=== PATIENT | female | born 1985 | race Two or more races ===

== ENCOUNTER 2017-06-20 13:49 | Emergency (ER) | payer OTHER ==
[2017-06-20 14:18] LABS: CLARITY,URINE CLOUDY
[2017-06-20 14:40] LABS: COLOR,URINE ORANGE
[2017-06-20 14:43] LABS: BACTERIA,URINE MODERATE /HPF (0-FEW); SQUAMOUS EPITHELIAL CELL,UR MOD /LPF; WBC,URINE >40 /HPF (0-4)
== END 2017-06-20 15:21 | disposition home or self-care (01) ==
LOC: ER 13:49
DX: N39.0 Urinary tract infection, site not specified (principal)
CPT/HCPCS: 81001; 87086; 87186; 99284

== ENCOUNTER 2017-10-08 19:16 | Emergency (ER) | payer SELFPAY, OTHER ==
[2017-10-08 19:59] LABS: URINE HCG POC HCG NEGATIVE (Negative)
[2017-10-10 14:30] LABS: CHLAMYDIA PROBE Negative (Negative); GC PROBE Negative (Negative)
== END 2017-10-08 20:05 | disposition home or self-care (01) ==
LOC: ER 19:16
DX: N76.0 Acute vaginitis (principal); B96.89 Other specified bacterial agents as the cause of diseases classified elsewhere; A60.00 Herpesviral infection of urogenital system, unspecified
CPT/HCPCS: 81025; 87491; 87591; 99284; Q0111

== ENCOUNTER 2017-10-24 10:42 | Emergency (ER) | payer SELFPAY ==
[2017-10-24 11:22] LABS: URINE HCG POC HCG NEGATIVE (Negative)
[2017-10-24 11:30] LABS: BILIRUBIN,URINE NEGATIVE (NEG); CLARITY,URINE CLEAR; COLOR,URINE YELLOW; GLUCOSE,URINE NEGATIVE (NEG); NITRITE,URINE NEGATIVE (NEG); PH,URINE 6.5; PROTEIN,URINE NEGATIVE (NEG-TRACE); UROBILINOGEN,URINE 0.2 mg/dL (0.2 mg/dL)
[2017-10-24 11:51] LABS: BACTERIA,URINE FEW /HPF (0-FEW); RBC,URINE 0 /HPF (0-2); SQUAMOUS EPITHELIAL CELL,UR MOD /LPF
[2017-10-24] MEDS: cefTRIAXone IM 250 MG VIAL IM (12:00)
[2017-10-24] MEDS: AZITHROMYCIN 250 MG TABLET. PO (12:00)
[2017-10-24] MEDS: metroNIDAZOLE 500 MG TABLET PO (12:00)
[2017-10-25 13:22] LABS: CHLAMYDIA PROBE Negative (Negative); GC PROBE Negative (Negative)
== END 2017-10-24 12:43 | disposition home or self-care (01) ==
LOC: ER 10:42
DX: N39.0 Urinary tract infection, site not specified (principal)
CPT/HCPCS: 81001; 81025; 87086; 87491; 87591; 96372; 99284; J0696; Q0111; Q0144

== ENCOUNTER 2019-03-19 19:11 | Emergency (ER) | payer OTHER ==
[~2019-03-19] VITALS: Ht 170.2 cm; Wt 104.3 kg
[~2019-03-19 19:11] MED LIST: ACYC400T PO; METR-34 PO; SULF1TAB24 PO
[2019-03-19] MEDS ORDERED: FAMOTIDINE 20 MG/2 ML VIAL IVP ONE (19:45)
[2019-03-19] MEDS ORDERED: LIDO:MAALOX 1:1 20 ML SINGLE DOSE. SWSW ONE (19:45)
[2019-03-19] MEDS ORDERED: ONDANSETRON PF 4 MG/2 ML VIAL. IVP ONE (19:45)
[2019-03-19] MEDS ORDERED: ASPIRIN 325 MG TABLET PO ONE (19:45)
[2019-03-19 19:53] LABS: BASO % 0 % (0-3); EOS # 0.1 x10^3/uL (0.0-0.7); EOS % 2 % (0-3); HEMATOCRIT 32.4 % (36.0-47.0); HEMOGLOBIN 10.7 g/dL (12.0-15.5); LYMPH # 2.4 x10^3/uL (1.0-4.8); LYMPH % 33 % (24-48); MEAN CORPUSCULAR HEMOGLOBIN 27 pg (25-35); MEAN CORPUSCULAR HGB CONC 33 g/dL (31-37); MEAN CORPUSCULAR VOLUME 80 fL (79-100); MONO # 0.6 x10^3/uL (0.0-1.1); MONO % 8 % (0-9); NEUT % 56 % (31-73); PLATELET COUNT 329 x10^3/uL (140-400); RED BLOOD COUNT 4.03 x10^6/uL (3.50-5.40); RED CELL DISTRIBUTION WIDTH 16.6 % (11.5-14.5); WHITE BLOOD COUNT 7.2 x10^3/uL (4.0-11.0)
[2019-03-19 19:55] LABS: BILIRUBIN,URINE NEGATIVE (NEG); CLARITY,URINE CLOUDY; COLOR,URINE YELLOW; NITRITE,URINE NEGATIVE (NEG); PH,URINE 7.5; PROTEIN,URINE NEGATIVE (NEG-TRACE); UROBILINOGEN,URINE 0.2 mg/dL (0.2 mg/dL)
[2019-03-19 20:00] LABS: BARBITURATES NEG (NEG); BENZODIAZEPINES NEG (NEG); CANNABINOIDS NEG (NEG); COCAINE NEG (NEG); METHADONE NEG (NEG); OPIATES NEG (NEG); PHENCYCLIDINE NEG (NEG); RBC,URINE 0 /HPF (0-2); WBC,URINE 0 /HPF (0-4)
[2019-03-19 20:01] LABS: AMORPHOUS SEDIMENT,UR PRESENT /HPF; AMPHETAMINE/METHAMPHETAMINE NEG (NEG); BACTERIA,URINE 0 /HPF (0-FEW); SQUAMOUS EPITHELIAL CELL,UR MOD /LPF
[2019-03-19 20:05] LABS: CALCIUM 8.7 mg/dL (8.5-10.1); CREATININE 0.6 mg/dL (0.6-1.0); GFR 115.1; POTASSIUM 3.6 mmol/L (3.5-5.1)
[2019-03-19 20:10] LABS: ALBUMIN 3.4 g/dL (3.4-5.0); ALBUMIN/GLOBULIN RATIO 0.9 (1.0-1.7); TOTAL BILIRUBIN 0.1 mg/dL (0.2-1.0); TOTAL PROTEIN 7.3 g/dL (6.4-8.2)
[2019-03-19 20:21] LABS: CREATINE KINASE 75 U/L (26-192)
[2019-03-19] MEDS: fentaNYL PF VIAL 100 MCG/2 ML VIAL IV PRN ×2 (20:28→21:17)
--- NOTE | 2019-03-19 20:46 | RAD ---
Single view chest dated 03/19/2019: No comparison available. Clinical Indication: Chest pain. Findings: Single upright portable exam of the chest was performed. Heart size and mediastinal contours are within normal limits given technique. The lungs are clear without evidence of focal consolidation. Vascular interstitium is within normal limits. Minimal patchy increased density at the infrahilar region on the left Impression:: Minimal patchy increased density at the infrahilar region on the left, likely atelectasis. Electronically signed by: Ishmael Seo MD (03/19/2019 8:44 PM) [facility]
--- NOTE | 2019-03-19 21:04 | RAD ---
Right upper quadrant ultrasound dated 03/19/2019. No comparison available. Clinical data indication: Chest pain. FINDINGS: Liver appears somewhat enlarged and there is diffuse increased echogenicity throughout. No apparent mass. Biliary tree normal in caliber. The common bile duct measures 5 mm. There are echogenic shadowing foci within the gallbladder lumen. Prominent shadowing focus appears to be lodged at the gallbladder neck. There is also some echogenic material consistent with sludge. No wall thickening or pericholecystic fluid. Right kidney measures 10.9 cm in length. No hydronephrosis. Left kidney was not imaged. Pancreas aorta and IVC are not well evaluated due to overlying bowel gas. No significant ascites. IMPRESSION: 1. Cholelithiasis with no secondary signs of acute cholecystitis. 2. Hepatomegaly and mild hepatic steatosis. Electronically signed by: Ishmael Seo MD (03/19/2019 9:01 PM) [facility]
--- NOTE | 2019-03-19 21:52 | PHYS DOC ---
Past Medical History Past Medical History: Hypertension (JESSY GAUTHIER APRN) Past Surgical History: No Surgical History (JESSY GAUTHIER APRN) Alcohol Use: None Drug Use: None (JESSY GAUTHIER APRN) Adult General Chief Complaint Chief Complaint: CHEST PAIN HPI HPI Patient is a 33 year old female with history of hypertension who presents to the ED today complaining of a 9 out of 10 substernal chest pain radiating to the left arm that began around 4 PM today. Patient denies any exacerbating or relieving factors. She states she has history of acid reflex though she has not been taking her medications. She states she has a refill of omeprazole. Patient denies any nausea, vomiting. Denies any chance she is . (JESSY GAUTHIER APRN) Review of Systems Review of Systems Constitutional: Denies fever or chills [] Eyes: Denies change in visual acuity, redness, or eye pain [] HENT: Denies nasal congestion or sore throat [] Respiratory: Denies cough or shortness of breath [] Cardiovascular: Reports chest pain GI: Denies abdominal pain, nausea, vomiting, bloody stools or diarrhea [] : Denies dysuria or hematuria [] Musculoskeletal: Denies back pain or joint pain [] Integument: Denies rash or skin lesions [] Neurologic: Denies headache, focal weakness or sensory changes [] All other systems were reviewed and found to be within normal limits, except as documented in this note. (JESSY GAUTHIER APRN) Current Medications Current Medications Current Medications Medications (Trade) Dose Ordered Sig/Danica Start Time Stop Time Status Last Admin Dose Admin Aspirin (Scooter Aspirin) 325 mg 1X ONCE 03/19/19 19:45 03/19/19 20:19 DC 03/19/19 20:30 325 MG Famotidine (Pepcid Vial) 20 mg 1X ONCE 03/19/19 19:45 03/19/19 20:19 DC 03/19/19 20:29 20 MG Fentanyl Citrate (Fentanyl 2ml Vial) 50 mcg PRN Q15MIN PRN 03/19/19 19:45 03/19/19 22:29 DC 03/19/19 21:17 50 MCG Multi-Ingredient Mouthwash/Gargle (Gi Cocktail) 20 ml 1X ONCE 03/19/19 19:45 03/19/19 20:19 DC 03/19/19 20:31 20 ML Ondansetron HCl (Zofran) 4 mg 1X ONCE 03/19/19 19:45 03/19/19 20:19 DC 03/19/19 20:25 4 MG (ISHMAEL NORIEGA DO) Allergies Allergies Allergies Coded Allergies Type Severity Reaction Last Updated Verified No Known Drug Allergies 06/20/17 No (ISHMAEL NORIEGA DO) Physical Exam Physical Exam Constitutional: Well developed, well nourished, no acute distress, non-toxic appearance. [] HENT: Normocephalic, atraumatic, bilateral external ears normal, oropharynx moist, no oral exudates, nose normal. [] Eyes: PERRLA, EOMI, conjunctiva normal, no discharge. [] Neck: Normal range of motion, no tenderness, supple, no stridor. [] Cardiovascular:Heart rate regular rhythm, no murmur [] Lungs & Thorax: Bilateral breath sounds clear to auscultation [] Abdomen: Bowel sounds normal, soft, no tenderness, no masses, no pulsatile masses. [] Skin: Warm, dry, no erythema, no rash. [] Back: No tenderness, no CVA tenderness. [] Extremities: No tenderness, no cyanosis, no clubbing, ROM intact, no edema. [] Neurologic: Alert and oriented X 3, normal motor function, normal sensory function, no focal deficits noted. [] Psychologic: flat affect (MUTUNGA,JESSY MUSIC COMPOSER) Current Patient Data Vital Signs Vital Signs Date Time Temp Pulse Resp B/P (MAP) Pulse Ox O2 Delivery O2 Flow Rate FiO2 03/19/19 22:18 82 160/89 (112) 99 Room Air 03/19/19 21:17 21 03/19/19 19:18 98.1 98.1 (ISHMAEL NORIEGA DO) Lab Values Laboratory Tests Test 03/19/19 19:27 03/19/19 19:35 Urine Collection Type Unknown Urine Color Yellow Urine Clarity Cloudy Urine pH 7.5 Urine Specific [place] 1.015 Urine Protein Negative mg/dL (NEG-TRACE) Urine Glucose (UA) Negative mg/dL (NEG) Urine Ketones (Stick) Negative mg/dL (NEG) Urine Blood Small (NEG) Urine Nitrite Negative (NEG) Urine Bilirubin Negative (NEG) Urine Urobilinogen Dipstick 0.2 mg/dL (0.2 mg/dL) Urine Leukocyte Esterase Negative (NEG) Urine RBC 0 /HPF (0-2) Urine WBC 0 /HPF (0-4) Urine Squamous Epithelial Cells Mod /LPF Urine Amorphous Sediment Present /HPF Urine Bacteria 0 /HPF (0-FEW) Urine Opiates Screen Neg (NEG) Urine Methadone Screen Neg (NEG) Urine Barbiturates Neg (NEG) Urine Phencyclidine Screen Neg (NEG) Urine Amphetamine/Methamphetamine Neg (NEG) Urine Benzodiazepines Screen Neg (NEG) Urine Cocaine Screen Neg (NEG) Urine Cannabinoids Screen Neg (NEG) Urine Ethyl Alcohol Neg (NEG) White Blood Count 7.2 x10^3/uL (4.0-11.0) Red Blood Count 4.03 x10^6/uL (3.50-5.40) Hemoglobin 10.7 g/dL (12.0-15.5) L Hematocrit 32.4 % (36.0-47.0) L Mean Corpuscular Volume 80 fL (79-100) Mean Corpuscular Hemoglobin 27 pg (25-35) Mean Corpuscular Hemoglobin Concent 33 g/dL (31-37) Red Cell Distribution Width 16.6 % (11.5-14.5) H Platelet Count 329 x10^3/uL (140-400) Neutrophils (%) (Auto) 56 % (31-73) Lymphocytes (%) (Auto) 33 % (24-48) Monocytes (%) (Auto) 8 % (0-9) Eosinophils (%) (Auto) 2 % (0-3) Basophils (%) (Auto) 0 % (0-3) Neutrophils # (Auto) 4.0 x10^3/uL (1.8-7.7) Lymphocytes # (Auto) 2.4 x10^3/uL (1.0-4.8) Monocytes # (Auto) 0.6 x10^3/uL (0.0-1.1) Eosinophils # (Auto) 0.1 x10^3/uL (0.0-0.7) Basophils # (Auto) 0.0 x10^3/uL (0.0-0.2) Sodium Level 141 mmol/L (136-145) Potassium Level 3.6 mmol/L (3.5-5.1) Chloride Level 105 mmol/L (98-107) Carbon Dioxide Level 26 mmol/L (21-32) Anion Gap 10 (6-14) Blood Urea Nitrogen 6 mg/dL (7-20) L Creatinine 0.6 mg/dL (0.6-1.0) Estimated GFR (Cockcroft-Gault) 115.1 BUN/Creatinine Ratio 10 (6-20) Glucose Level 107 mg/dL (70-99) H Calcium Level 8.7 mg/dL (8.5-10.1) Total Bilirubin 0.1 mg/dL (0.2-1.0) L Aspartate Amino Transferase (AST) 11 U/L (15-37) L Alanine Aminotransferase (ALT) 13 U/L (14-59) L Alkaline Phosphatase 63 U/L (46-116) Creatine Kinase 75 U/L (26-192) Creatine Kinase MB (Mass) < 0.5 ng/mL (0.0-3.6) Creatine Kinase MB Relative Index % (0-4) Troponin I Quantitative < 0.017 ng/mL (0.000-0.055) NJ-Uum-S-Type Natriuretic Peptide 33 pg/mL (0-124) Total Protein 7.3 g/dL (6.4-8.2) Albumin 3.4 g/dL (3.4-5.0) Albumin/Globulin Ratio 0.9 (1.0-1.7) L Lipase 210 U/L (73-393) Laboratory Tests 03/19/19 19:35 Laboratory Tests 03/19/19 19:35 (ISHMAEL NORIEGA DO) EKG EKG Interpreted by Dr. Noriega sinus rhythm heart rate 79 no STEMI[] (JESSY GAUTHIER APRN) Radiology/Procedures Radiology/Procedures []PROCEDURE: PORTABLE CHEST 1V Single view chest dated 03/19/2019: No comparison available. Clinical Indication: Chest pain. Findings: Single upright portable exam of the chest was performed. Heart size and mediastinal contours are within normal limits given technique. The lungs are clear without evidence of focal consolidation. Vascular interstitium is within normal limits. Minimal patchy increased density at the infrahilar region on the left Impression:: Minimal patchy increased density at the infrahilar region on the left, likely atelectasis. Electronically signed by: Ishmael Seo MD (03/19/2019 8:44 PM) [facility] DICTATED and SIGNED BY: ISHMAEL SEO MD DATE: 03/19/192043 PROCEDURE: ABDOMEN LTD Right upper quadrant ultrasound dated 03/19/2019. No comparison available. Clinical data indication: Chest pain. FINDINGS: Liver appears somewhat enlarged and there is diffuse increased echogenicity throughout. No apparent mass. Biliary tree normal in caliber. The common bile duct measures 5 mm. There are echogenic shadowing foci within the gallbladder lumen. Prominent shadowing focus appears to be lodged at the gallbladder neck. There is also some echogenic material consistent with sludge. No wall thickening or pericholecystic fluid. Right kidney measures 10.9 cm in length. No hydronephrosis. Left kidney was not imaged. Pancreas aorta and IVC are not well evaluated due to overlying bowel gas. No significant ascites. IMPRESSION: 1. Cholelithiasis with no secondary signs of acute cholecystitis. 2. Hepatomegaly and mild hepatic steatosis. Electronically signed by: Ishmael Seo MD (03/19/2019 9:01 PM) [facility] DICTATED and SIGNED BY: ISHMAEL SEO MD DATE: 03/19/192100 (JESSY GAUTHIER APRN) Course & Med Decision Making Course & Med Decision Making Pertinent Labs and Imaging studies reviewed. (See chart for details) This is a 33-year-old female patient presenting to the ED today complaining of chest pain that began a couple hours prior to coming to the ED. Patient is also reporting she is a lot of situational stress. Denies any suicidal homicidal ideations. Her cardiac workup is negative. Limited right upper quadrant ultrasound noted for cholelithiasis. Heart score is 1. D/c to home. Patient spent quit a bit of time asking for home medicine pain medicine. Offered Rx for gabapentin and instructed to take Ompeprazole Provided tunnel elastic operator chainstitch, GI, general surgeon for f/u. F/u with PCP as well (JESSY GAUTHIER APRN) Dragon Disclaimer Dragon Disclaimer This electronic medical record was generated, in whole or in part, using a voice recognition dictation system. (JESSY GAUTHIER APRN) The HEART Score for CP Pts HEART Score for Chest Pain: HEART Score for Chest Pain Response (Comments) Value History Slighlty/Non-Suspicious 0 ECG Normal 0 Age < 45 0 Risk Factors 1 or 2 Risk Factors 1 Troponin < Normal Limit 0 Total 1 Risk Factors: Risk Factors: DM, Current or recent (<one month) smoker, HTN, HLP, family history of CAD, obesity. Risk Scores: Score 0 - 3: 2.5% MACE over next 6 weeks - Discharge Home Score 4 - 6: 20.3% MACE over next 6 weeks - Admit for Clinical Observation Score 7 - 10: 72.7% MACE over next 6 weeks - Early Invasive Strategies (JESSY GAUTHIER APRN) Departure Departure Impression: Primary Impression: Cholelithiasis Additional Impressions: Chest pain Stress Disposition: HOME, SELF-CARE Condition: STABLE Referrals: LILIAN ISLAS MD (PCP) RAMILA EARLY MD follow up for gallbladder disease ABNER ARMSTRONG MD follow up for chest pain GISSELLE MOTT MD follow up for acid reflex Patient Instructions: Chest Pain (Nonspecific), Cholelithiasis, Stress Additional Instructions: You were evaluated in the emergency room for chest pain, your cardiac workup is negative. We provided do a Corporate Legal Manager as well as GI for follow-up. We highly recommend you consider following up with a counselor for stress management for example [facility]. Please ensure you taking omeprazole Please take the prescribed pain medicine only as needed for pain. We provided. General surgeon to follow-up for gallbladder disease Scripts Gabapentin (NEURONTIN) 600 Mg Tablet 600 MG PO TID PRN for PAIN, #30 TAB Prov: BRITTANEYJESSY JOHNSON GRACIELA 03/19/19 Attending Signature Attending Signature I have reviewed the PA/SPECIAL DUTY NURSE's note and plan of care. I was available for consultation as needed during the patient's visit in the emergency department. I agree with the clinical impression, plan, and disposition. (ISHMAEL NORIEGA DO) Problem Qualifiers Primary Impression: Cholelithiasis Cholelithiasis location: gallbladder Cholecystitis presence: without cholecystitis Biliary obstruction: without biliary obstruction Qualified Codes: K80.20 - Calculus of gallbladder without cholecystitis without obstruction Additional Impressions: Chest pain Chest pain type: unspecified Qualified Codes: R07.9 - Chest pain, unspecified JESSY GAUTHIER GRACIELA Mar 19, 2019 21:51 ISHMAEL NORIEGA DO Mar 20, 2019 03:29
[2019-03-19] MEDS ORDERED: GABA600T PO (22:03)
[2019-03-19 22:18] VITALS: BP 160/89
--- NOTE | 2019-03-20 07:07 | EKG ---
[facility] [address] [place] [address] Test Date: 2019-03-19 Test Time: 19:21:42 Pat Name: UMA SANCHEZ Department: Room: Gender: F Certified Ophthalmic Medical Technician: : 1985 Requested By: JESSY GAUTHIER Order Number: [id number] Reading MD: Measurements Intervals [place] Rate: 79 P: 0 DE: 134 QRS: 34 QRSD: 82 T: 27 QT: 358 QTc: 411 Interpretive Statements SINUS RHYTHM NO SPECIFIC ECG ABNORMALITIES RI6.01 No previous ECG available for comparison
== END 2019-03-19 22:21 | disposition home or self-care (01) ==
LOC: ER 19:11
DX: R07.2 Precordial pain (principal); K80.20 Calculus of gallbladder without cholecystitis without obstruction; F43.9 Reaction to severe stress, unspecified; M79.602 Pain in left arm; I10 Essential (primary) hypertension; K21.9 Gastro-esophageal reflux disease without esophagitis
CPT/HCPCS: 36415; 71045; 76705; 80053; 80307; 81001; 82553; 83690; 83880; 84484; 85025; 93005; 96374; 96375; 96376; 99285; J2405; J3010; J3490; 12013; 25605; 99152; 99153